=== PATIENT | male | born 1970 | race Caucasian/White ===

== ENCOUNTER 2019-04-05 04:19 | Outpatient (CLI) | payer MEDICARE, OTHER, MEDICAID, SELFPAY ==
--- NOTE | 2019-04-05 | DI.CT_ITS ---
EXAM: CT BRAIN NECK CTA CLINICAL HISTORY: HX CVA, PERS HX TIA AND CEREBRAL INFARCTION Z86.73 TECHNIQUE: Noncontrast head CT followed by CT angiography of the head and neck. COMPARISON: MR BRAIN W/WO CONTRAST from 09/15/2015 CT HEAD/BRAIN WO CONTRAST from 05/19/2016 FINDINGS: Noncontrast head CT: A right-sided posterior frontal craniotomy is seen. There is an area of old i nfarct in the right parietal lobe and a small right basal ganglia lacunar infarct. The findings appe ar unchanged from the previous exam. No new areas of infarct, hemorrhage or mass is seen. The ventr icles are normal in size. There is mild atrophy. The sinuses, mastoid air cells and orbits are unre markable. CT a of the head and neck: There is mild calcific plaque at both common carotid bulbs, left greater t juárez right. There is no significant stenosis in the left common, internal or external carotid arterie s. In the proximal right internal carotid artery is normal in diameter dist above the bifurcation. There is a smoothly tapered area of narrowing and occlusion. The right external carotid artery is un remarkable. Left the vertebral and basilar arteries are normal in diameter. Posterior cerebral scott delmis, anterior cerebral arteries and left middle cerebral artery are normal in diameter. The right middle cerebral artery shows reduced diameter. The vasculature is diminished in the mid and posterior right parietal branches in the area the old infarct. The venous sinuses are unremarkable. The parotid, submandibular and thyroid glands appear normal. T here is respiratory motion at the visualized portions of the upper lobes. There is mild centrilobula r emphysema. Degenerative changes are seen in the cervical spine, greatest at C1-2 and C5-6. Airway is unremarkable. IMPRESSION: Occlusion of the right internal carotid carotid artery just above the bifurcation through the juncti on with the middle cerebral artery. The right middle cerebral artery appears diminutive and there is decreased perfusion to the right parietal lobe in the region of the previous infarct.
[2019-04-05] MEDS: Omnipaque 350 MG/ML 100 ML BTL IJ (14:01)
== END 2019-04-05 04:39 ==
PROVIDERS: PCP Family Medicine; Visit Provider Family Medicine
DX: I65.21 Occlusion and stenosis of right carotid artery (principal); Z86.73 Personal history of transient ischemic attack (TIA), and cerebral infarction without residual deficits; I10 Essential (primary) hypertension
CPT/HCPCS: 70496; 70498; 82565; J3490

== ENCOUNTER → 2019-05-07 08:38 | Outpatient (BNVA) | payer MEDICARE, OTHER, MEDICAID, SELFPAY | PROVIDERS: PCP Family Medicine; Referring Provider Family Medicine; Visit Provider Psychiatry & Neurology Neurology | DX: I73.9 Peripheral vascular disease, unspecified; E11.40 Type 2 diabetes mellitus with diabetic neuropathy, unspecified; E11.65 Type 2 diabetes mellitus with hyperglycemia; I65.21 Occlusion and stenosis of right carotid artery; Z86.73 Personal history of transient ischemic attack (TIA), and cerebral infarction without residual deficits; J44.9 Chronic obstructive pulmonary disease, unspecified; F17.210 Nicotine dependence, cigarettes, uncomplicated; I10 Essential (primary) hypertension; R68.89 Other general symptoms and signs | CPT/HCPCS: 99205; 99443; NC OV ==

== ENCOUNTER → 2019-06-10 07:51 | Outpatient (BNVA) | payer MEDICARE, OTHER, MEDICAID, SELFPAY | PROVIDERS: PCP Family Medicine; Referring Provider Family Medicine; Visit Provider Psychiatry & Neurology Neurology | DX: I65.21 Occlusion and stenosis of right carotid artery (principal); I67.9 Cerebrovascular disease, unspecified; E11.40 Type 2 diabetes mellitus with diabetic neuropathy, unspecified; I73.9 Peripheral vascular disease, unspecified; E11.65 Type 2 diabetes mellitus with hyperglycemia; I63.9 Cerebral infarction, unspecified; Z79.4 Long term (current) use of insulin | CPT/HCPCS: 99358; 99442 ==

== ENCOUNTER 2019-06-13 03:06 | Outpatient (CLI) | payer MEDICARE, OTHER, MEDICAID, SELFPAY ==
--- NOTE | 2019-06-13 18:51 | PDOC.EEG_ITS ---
Neurology EEG EEG: [facility] Department of Neurology EEG REPORT Date of Recordin06/13/19 Interpreting Physician: Dr. Jacquelin Hernandez PCP/Referring Provider: Dr. Esposito Reason for study: Mr. Prajapati is a 48 year-old man with a history of stroke and recent spells manifested by slurred speech and gait imbalance concerning for seizure. Current Medications: Home Medications Medication Instructions Recorded Confirmed Type acetaminophen 325 mg tablet 325 mg PO Q6H PRN tab 03/21/19 06/10/19 History aluminum-mag hydroxide-simethicone 30 ml PO .Q6HR PRN ml 03/21/19 06/10/19 History 200 mg-200 mg-20 mg/5 mL oral susp clopidogrel 75 mg tablet 75 mg PO DAILY 03/21/19 06/10/19 History diltiazem HCl 240 mg 240 mg PO DAILY 03/21/19 06/10/19 History capsule,extended release 24 hr duloxetine 60 mg capsule,delayed 60 mg PO DAILY 03/21/19 06/10/19 History release insulin glargine 100 unit/mL (3 50 unit SC DAILY ml 03/21/19 06/10/19 History mL) subcutaneous pen insulin lispro 100 unit/mL 1 sliding sc SC USEASDIRECTD 03/21/19 06/10/19 History subcutaneous solution isosorbide mononitrate 20 mg tablet 20 mg PO DAILY tab 03/21/19 06/10/19 History metoprolol tartrate 50 mg tablet 50 mg PO BID 03/21/19 06/10/19 History pantoprazole 20 mg tablet,delayed 20 mg PO DAILY 03/21/19 06/10/19 History release pravastatin 40 mg tablet 40 mg PO DAILY 03/21/19 06/10/19 History aspirin 81 mg tablet,delayed 81 mg PO DAILY #90 tab 05/07/19 06/10/19 Rx release gabapentin 800 mg tablet 800 mg PO DIRECTED #120 tab 05/07/19 06/10/19 Rx ondansetron 4 mg disintegrating 4 mg PO Q8H 06/10/19 06/10/19 History tablet METHODS: A 21 channel digitized electroencephalogram was performed in the [facility] Clinical Neurophysiology Laboratory. The 10/20 international system of electrode placement was used and bipolar and referential electrode montages were recorded. In addition to EEG the patient was monitored for EKG and lateral/vertical eye movements. Activation procedures of photic stimulation and hyperventilation were performed if applicable. Video was used during activation procedures and during events where applicable. The duration of the recording was 30 minutes. DESCRIPTION OF EEG: The patient was noted to be awake and drowsy during the recording. During maximal wakefulness a 9-Hz posterior background rhythm was present which was well-modulated, symmetrical, reactive to eye opening, and of moderate voltage. With eye opening the background activity changed to a low voltage mixture of alpha, beta, and occasional theta range frequencies. Faster frequencies were present in the bilateral anterior head regions. There was a normal anterior- posterior voltage gradient. During drowsiness, there was attenuation of the posterior dominant background rhythm and vertex waves. Stage II sleep was present with symmetrical sleep spindles, K-complexes, and vertex waves. Stage III slow-wave also seen with several arousals, but no witnessed apneas. Activating Procedures: Photic stimulation was performed which produced no posterior driving response. Hyperventilation was performed with moderate effort and produced moderate physiological slowing of the background. EKG: EKG revealed normal sinus rhythm. INTERPRETATION: This EEG is normal during the awake and sleep states as well as during photic stimulation and hyperventilation. PRIOR EEG: none CLINICAL CORRELATION: No focal regions of cerebral dysfunction or epileptiform activity was present. Epilepsy remains a clinical diagnosis and a normal EEG does not rule out epilepsy. An excessive amount of sleep and late stage sleep was seen during this study. Clinical correlation is advised. Jacquelin Hernandez MD
== END 2019-06-13 03:26 ==
PROVIDERS: PCP Family Medicine; Visit Provider Psychiatry & Neurology Neurology
DX: R29.818 Other symptoms and signs involving the nervous system (principal); Z86.73 Personal history of transient ischemic attack (TIA), and cerebral infarction without residual deficits; R47.81 Slurred speech; R26.81 Unsteadiness on feet
CPT/HCPCS: 95819; 95816

== ENCOUNTER 2019-07-31 09:50 | Emergency (ER) | payer MEDICARE, MEDICAID, SELFPAY ==
[2019-07-31 09:57] VITALS: BP 162/102; PULSE 110; RESP 16; TEMP 36.5; O2SAT 96
--- NOTE | 2019-07-31 10:30 | DI.RAD_ITS ---
EXAM: XR FOOT LT COMPLETE CLINICAL HISTORY: pain 5th metatarsal and toe TECHNIQUE: COMPARISON: No exams were available for comparison FINDINGS: Three views were obtained. There is soft tissue swelling adjacent to 5th MTP joint. No underlying b trupti seen at this site. No other significant findings. IMPRESSION:
[2019-07-31] MEDS: Insulin REGULAR-Human 100 UNITS/ML UNIT SC (11:02)
[2019-07-31] MEDS: Metoprolol 50 MG TAB PO (11:03)
[2019-07-31 12:28] VITALS: BP 153/103; PULSE 83; RESP 20; TEMP 36.7; O2SAT 96
--- NOTE | 2019-08-01 07:15 | NUR.NOTE ---
Referral faxed to Dr. Dubois [phone].Nursing Note:
--- NOTE | 2019-08-02 16:04 | ED.GENADUL_ITS ---
Discharge Plan Disposition Patient Disposition: HOME Condition: Stable Discharge Details Chief Complaint: Orthopedic Clinical Impression: Acute foot pain Primary Care Provider: Branden Esposito ED Provider: Evelin Bell Home Meds and New Rx's Prescriptions: New cephalexin 500 mg capsule 500 mg PO QID Qty: 40 RF: 0 sulfamethoxazole-trimethoprim [Bactrim DS] 800-160 mg tablet 1 tab PO BID Qty: 20 RF: 0 No Action ondansetron 4 mg tablet,disintegrating 4 mg PO Q8H RF: 0 gabapentin 800 mg tablet 800 mg PO DIRECTED Qty: 120 RF: 5 aspirin [Adult Aspirin Regimen] 81 mg tablet,delayed release (DR/EC) 81 mg PO DAILY Qty: 90 RF: 3 acetaminophen 325 mg tablet 325 mg PO Q6H PRNRF: 0 alum-mag hydroxide-simeth [Antacid Anti-Gas] 200-200-20 mg/5 mL suspension 30 ml PO .Q6HR PRNRF: 0 clopidogrel 75 mg tablet 75 mg PO DAILY RF: 0 diltiazem HCl 240 mg capsule,extended release 24hr 240 mg PO DAILY RF: 0 duloxetine 60 mg capsule,delayed release(DR/EC) 60 mg PO DAILY RF: 0 insulin lispro [Humalog U-100 Insulin] 100 unit/mL solution 1 sliding sc SC USEASDIRECTD RF: 0 isosorbide mononitrate 20 mg tablet 20 mg PO DAILY RF: 0 Lantus Solostar U-100 Insulin 100 unit/mL (3 mL) insulin pen 50 unit SC DAILY RF: 0 metoprolol tartrate [Lopressor] 50 mg tablet 50 mg PO BID RF: 0 pantoprazole 20 mg tablet,delayed release (DR/EC) 20 mg PO DAILY RF: 0 pravastatin 40 mg tablet 40 mg PO DAILY RF: 0 Discharge Instructions Additional Instructions: Elevate leg for swelling. Use postoperative shoe for comfort. Ice for no more than 10 to 15 minutes 3-5 times a day for swelling. Do not sleep with ice in your foot. Be sure to be compliant with your daily medications. Antibiotic as prescribed for concern of infection as discussed. Be sure to have prompt follow-up with your primary care doctor. Please follow- up with assistant casino shift manager as discussed. Return for any worsening, concerns or alarming symptoms sooner if needed Discharge Data Discharge Date/Time-TO BE ENTERED AT DEPARTURE: 07/31/19 12:43 Medical Decision Making This is is a very pleasant 48-year-old patient presenting for complaints of left foot pain. Please see HPI for the remainder of patient's details. Initial evaluation does reveal fifth toe pain noted at the base of the toe overlying the lateral callus on the left foot. Patient has minimal swelling of this type with no open wounds. We will plan to obtain an x-ray to rule out any bony abnormality including osteomyelitis which could be developing or from a previous infection however patient has no open wounds at this time. Will rule out fracture given patient's history of neuropathy. Patient does report he did not take his daily medications. His fingerstick blood glucose is noted to be 304. He is mildly tachycardic and hypertensive therefore will provide 5 units of insulin and a dose of his metoprolol 50 mg. Patient agrees with this plan of care. Patient's x-ray is unremarkable for identified fracture. No evident bony destruction at this time. Offered a postoperative shoe for patient's comfort. He agrees with this plan of care. Offered antibiotics as patient is predominantly concerned with the possibility of infection at this is a site of infection that he has experienced in the past and this is his predominant concern today. Will provide both Bactrim and Keflex given he reports an abscess formation historically as patient is a diabetic. I did place patient on a follow-up list with Dr. gore as he does not have any local podiatry care which I do feel is necessary given the extent of his peripheral neuropathy, his poorly controlled diabetes. Patient agrees with this plan of care. Return precautions were discussed at length. Ischemic control discussed, compliance with his daily medications discussed. Patient's vital signs are improved after receiving his medication and blood sugar did improve into the 200 s. Patient does still have mild hypertension although he has no symptoms of hypertensive urgency or emergency at this time. The patient was stable and requested discharge. Prior to discharge, my usual and customary return precautions were reviewed with the patient - this included follow-up instructions and reasons to return to the Emergency Department if conditions worsens, does not improve as expected, or other new concerns arise. HPI General Date/Time Provider Initiated Documentation: 07/31/19 10:00 . HPI Narrative: This is a pleasant 48-year-old patient presenting for complaints of left foot pain. Patient describes foot swelling which has been present for the last 2 days noted to the base of the fifth toe. Patient reports he is a diabetic, has no local assistant casino shift manager. Blood sugars have been okay patient denies any injury or trauma to the area. Patient reports significant pain when ambulating. Patient does have a history of moderate neuropathy and peripheral vascular disease. Patient reports he has chronic foot pain however this site is concerning for him as this is an area where he has had infection in the past which formed an abscess which he incised and drained on his own. Patient reports he had purulent drainage from the area. Patient reports this is similar to what he experienced at onset of that abscess in years past. Patient denies any fevers or chills. Patient denies any systemic symptoms. Patient feels well in general. Patient did not take his daily medications this morning therefore has had no blood pressure medications or insulin. Patient is eating and drinking without difficulty. Patient denies any obvious numbness, tingling or w eakness to the area. Pain with ambulation is noted. Denies any obvious rash. Denies any open wound or foot drainage. Patient does report the base of the fifth toe does feel swollen, and the tissue did feel somewhat boggy in the area. No change in coloration of the foot reported Related Data Home Medications Medication Instructions Recorded Confirmed acetaminophen 325 mg tablet 325 mg PO Q6H PRN tab 03/21/19 06/10/19 aluminum-mag hydroxide-simethicone 30 ml PO .Q6HR PRN ml 03/21/19 06/10/19 200 mg-200 mg-20 mg/5 mL oral susp clopidogrel 75 mg tablet 75 mg PO DAILY 03/21/19 07/31/19 diltiazem HCl 240 mg 240 mg PO DAILY 03/21/19 07/31/19 capsule,extended release 24 hr duloxetine 60 mg capsule,delayed 60 mg PO DAILY 03/21/19 07/31/19 release insulin glargine 100 unit/mL (3 50 unit SC DAILY ml 03/21/19 07/31/19 mL) subcutaneous pen insulin lispro 100 unit/mL 1 sliding sc SC USEASDIRECTD 03/21/19 07/31/19 subcutaneous solution isosorbide mononitrate 20 mg tablet 20 mg PO DAILY tab 03/21/19 07/31/19 metoprolol tartrate 50 mg tablet 50 mg PO BID 03/21/19 07/31/19 pantoprazole 20 mg tablet,delayed 20 mg PO DAILY 03/21/19 07/31/19 release pravastatin 40 mg tablet 40 mg PO DAILY 03/21/19 07/31/19 aspirin 81 mg tablet,delayed 81 mg PO DAILY #90 tab 05/07/19 07/31/19 release gabapentin 800 mg tablet 800 mg PO DIRECTED #120 tab 05/07/19 07/31/19 ondansetron 4 mg disintegrating 4 mg PO Q8H 06/10/19 07/31/19 tablet cephalexin 500 mg PO QID #40 cap 07/31/19 sulfamethoxazole-trimethoprim 1 tab PO BID #20 tab 07/31/19 [Bactrim DS] Previous Rx's Medication Instructions Recorded aspirin 81 mg tablet,delayed 81 mg PO DAILY #90 tab 05/07/19 release gabapentin 800 mg tablet 800 mg PO DIRECTED #120 tab 05/07/19 cephalexin 500 mg PO QID #40 cap 07/31/19 sulfamethoxazole-trimethoprim 1 tab PO BID #20 tab 07/31/19 [Bactrim DS] Allergies Allergy/AdvReac Type Severity Reaction Status Date / Time Iodine and Iodide Containing Allergy Verified 07/31/19 10:05 Produc levofloxacin [From Levaquin] Allergy Verified 07/31/19 10:05 morphine Allergy Verified 07/31/19 10:05 pregabalin [From Lyrica] Allergy Verified 07/31/19 10:05 General Stated Complaint: Orthopedic FRED: 3 Review of Systems All systems reviewed & are unremarkable except as noted in HPI and below PFSH Medical History Anxiety (Chronic) BPPV (benign paroxysmal positional vertigo) (Acute) Carotid occlusion, right (Acute) Cervical radiculopathy (Acute) Chronic pain syndrome (Chronic) Claustrophobia (Acute) COPD (chronic obstructive pulmonary disease) (Chronic) Coronary artery disease (Chronic) Depressive disorder (Acute) Diabetes (Chronic) Diabetic neuropathy (Acute) GERD (gastroesophageal reflux disease) (Chronic) History of cerebrovascular accident (Acute) Hyperlipidemia (Acute) Hypertension (Chronic) Insomnia (Acute) Intracranial vascular stenosis (Acute) Nicotine dependence with current use (Acute) Overweight (Acute) Peripheral artery disease (Acute) Poorly controlled diabetes mellitus (Acute) Post splenectomy syndrome (Acute) Seizures (Acute) post crani in 2003 Stroke (Chronic) right hemisphere, 2004 Surgical History (Updated 06/10/19 @ 16:59 by Jacquelin Hernandez MD) H/O brain surgery (Acute) 2004 in [place]; s/p ECIC bypass; R STA --> M4 segment H/O heart artery stent (Chronic) x4 History of appendectomy (Chronic) History of cholecystectomy (Chronic) [place] [facility] [place] of [place]CP (Acute) History of orthopedic surgery (Acute) L wrist ORIF S/P arterial stent (Acute) bilateral femoral S/P splenectomy (Acute) Social History Smoking/Tobacco Use Status: Current every day Tobacco Type: cigarettes Smoking packs per day: 1 Smoking cigarettes per day: 20.0 Alcohol Intake: never Drug use: Daily Substance use type: marijuana Household members: significant other current occupation: Disabled Do you feel safe at home: Yes Exam Narrative Exam Narrative: CONST: Healthy appearing patient, in no acute distress. Well hydrated. Alert and oriented. HENMT: Head nomocephalic, normal to inspection. Atraumatic. Hearing grossly normal. EYES: General normal appearance. Alignment normal. Eyelids normal. Conjunctiva normal. NECK: Normal visual inspection. FROM. Trachea midline. No Midline tenderness. CHEST: Normal insepection of the chest. RESP: Normal respiratory effort. Speaking full sentences. No cough. No audible wheezing. No retractions. CARDIO: No JVD. MUSCULOSKELETAL: Normal Gait. FROM of all extremities. Patient has chronic peripheral changes distally of his bilateral lower extremities. Patient does have a delayed cap refill bilaterally which he reports is his baseline. Patient does have intact pulses throughout the foot. Patient has no obvious lower extremity swelling bilaterally related to the calf ankle or foot with the exception of mild focal swelling noted at the base of the fifth toe on the left foot. Patient has no ankle pain with palpation. Patient does have left foot pain with palpation at the fifth toe focally. Sensation equal bilaterally which is somewhat decreased due to his peripheral neuropathy. No obvious open wounds, drainage or ulceration noted. SKIN: Normal. Dry. No rashes. No wounds NEURO: Alert and awake. Speech clear. PSYCH: Normal affect. Cooperative. Course Vital Signs Vital signs: Vital Signs Temperature 36.5 C 07/31/19 09:57 Pulse 110 H 07/31/19 09:57 Respiratory Rate 16 07/31/19 09:57 Blood Pressure 162/102 H 07/31/19 09:57 Pulse Oximetry 96 07/31/19 09:57 Temperature 36.7 C 07/31/19 12:28 Temperature Source Skin 07/31/19 12:28 Pulse 83 07/31/19 12:28 Respiratory Rate 20 07/31/19 12:28 Respiratory Effort 07/31/19 10:02 Blood Pressure 153/103 H 07/31/19 12:28 Blood Pressure Position Sitting 07/31/19 09:57 Pulse Oximetry 96 07/31/19 12:28 Oxygen Delivery Method Room Air 07/31/19 12:28 Oxygen Flow Rate 0 07/31/19 12:28 Pain Level 4 07/31/19 12:28
== END 2019-07-31 12:43 | disposition home or self-care (01) ==
PROVIDERS: Emergency Provider Physician Assistant; PCP Family Medicine
DX: M25.572 Pain in left ankle and joints of left foot (principal); G89.29 Other chronic pain; E11.40 Type 2 diabetes mellitus with diabetic neuropathy, unspecified; Z79.4 Long term (current) use of insulin; E11.65 Type 2 diabetes mellitus with hyperglycemia; J44.9 Chronic obstructive pulmonary disease, unspecified; F17.210 Nicotine dependence, cigarettes, uncomplicated; I10 Essential (primary) hypertension
CPT/HCPCS: 36416; 82962; 96372; 99284; 73630

== ENCOUNTER → 2019-08-21 13:46 | Outpatient (BNVA) | payer MEDICARE, MEDICAID, SELFPAY | PROVIDERS: PCP Family Medicine; Referring Provider Family Medicine; Visit Provider Psychiatry & Neurology Neurology | DX: E11.40 Type 2 diabetes mellitus with diabetic neuropathy, unspecified (principal); I73.9 Peripheral vascular disease, unspecified; E11.65 Type 2 diabetes mellitus with hyperglycemia; I63.9 Cerebral infarction, unspecified; I65.21 Occlusion and stenosis of right carotid artery; I67.9 Cerebrovascular disease, unspecified; J44.9 Chronic obstructive pulmonary disease, unspecified; F17.210 Nicotine dependence, cigarettes, uncomplicated; I10 Essential (primary) hypertension; Z79.4 Long term (current) use of insulin | CPT/HCPCS: 99214 ==